=== PATIENT | female | born 1975 | race Caucasian/White ===

== ENCOUNTER 2018-12-02 12:17 | Emergency (ER) | payer SELFPAY ==
[~2018-12-02] VITALS: Ht 152.4 cm; Wt 61.2 kg
--- NOTE | 2018-12-02 12:17 | NUR ---
PT BIB [place] [employer] FOR PREBOOK
[2018-12-02 12:23] VITALS: BP 203/130
[2018-12-02] MEDS ORDERED: cloNIDine 0.1 MG TAB PO ONE ×2 (12:35)
[2018-12-02] MEDS ORDERED: cloNIDine 0.1 MG TAB ONE (12:44)
[2018-12-02] MEDS ORDERED: NITROGLYCERIN 0.4 MG TAB SL ONE (13:30)
--- NOTE | 2018-12-02 13:36 | NUR ---
pt refused nitroglycerin. notified
[2018-12-02 14:15] VITALS: BP 151/103
--- NOTE | 2018-12-02 14:16 | NUR ---
PATIENT BIB [employer] [employer]. PATIENT EXAMINED BY . PATIENT MEDICALLY CLEARED AND RELEASED IN CUSTODY IN STABLE CONDITION. ORIGINAL PRE-BOOK FORM GIVEN TO OFFICER .
== END 2018-12-02 14:15 | disposition home or self-care (01) ==
LOC: MED 12:17
DX: I10 Essential (primary) hypertension (principal); Z02.89 Encounter for other administrative examinations
CPT/HCPCS: 99283